=== PATIENT | female | born 1985 | race Caucasian/White ===

== ENCOUNTER → 2017-01-31 | Outpatient (REF) | payer OTHER | LOC: M LAB REF 16:22 | DX: J03.90 Acute tonsillitis, unspecified (principal) ==

== ENCOUNTER → 2021-03-15 | Outpatient (REF) | payer BC | LOC: M SFHCWAGY 19:22 | PROVIDERS: ATTEND Obstetrics & Gynecology | DX: Z01.419 Encounter for gynecological examination (general) (routine) without abnormal findings (principal) | CPT/HCPCS: 87624; G0123 ==

== ENCOUNTER → 2022-03-02 | Outpatient (CLI) | payer BC, OTHER | LOC: M LABSMTC 11:12 | PROVIDERS: ATTEND Anesthesiology | DX: Z01.812 Encounter for preprocedural laboratory examination (principal); Z20.822 Contact with and (suspected) exposure to COVID-19 ==

== ENCOUNTER → 2022-07-17 | Outpatient (REF) | payer OTHER ==
[~2022-07-17] MED LIST: IBUP80TA PO; OXYC1TAB23 PO
== END ==
LOC: M PLALAB 13:35
PROVIDERS: ATTEND Obstetrics & Gynecology
DX: Z12.4 Encounter for screening for malignant neoplasm of cervix (principal)
CPT/HCPCS: 87624; G0123

== ENCOUNTER → 2022-08-02 | Outpatient (CLI) | payer OTHER | LOC: M WHC 06:46 | PROVIDERS: ATTEND Obstetrics & Gynecology | DX: Z12.31 Encounter for screening mammogram for malignant neoplasm of breast (principal) ==

== ENCOUNTER → 2025-09-01 | Outpatient (REF) | payer OTHER ==
[2025-09-03 15:57] LABS: HPV APTIMA Not Detected (Not Detected)
== END ==
LOC: M SFHCWAGY 17:51
PROVIDERS: ATTEND Obstetrics & Gynecology
DX: Z01.419 Encounter for gynecological examination (general) (routine) without abnormal findings (principal); R85.610 Atypical squamous cells of undetermined significance on cytologic smear of anus (ASC-US)
CPT/HCPCS: 87624; G0123

== ENCOUNTER → 2025-09-01 | Outpatient (CLI) | payer OTHER | LOC: M WHC 13:00 | PROVIDERS: ATTEND Obstetrics & Gynecology | DX: Z12.31 Encounter for screening mammogram for malignant neoplasm of breast (principal) ==